=== PATIENT | female | born 1945 | race Caucasian/White ===

== ENCOUNTER → 2017-02-02 | Outpatient (CLI) | payer OTHER ==
[~2017-02-02] MED LIST: ACID CONTROL150 MG PO; ATORVASTATIN CA40 MG PO; BUPROPION HCL150 M2 PO; CARAFATE100 MG/ML PO; FLONASE16 G1 BOTH NARES; HYDROCHLOROTHIA25 MG PO; LEVOTHYROXINE112 MCG PO; NERVE PILL; OMEPRAZOLE20 M2 PO; PRED FORTE100 DROP/5 BOTH EYES; ST. JOSEPH ASPI81 MG PO; VALSARTAN160 MG PO
== END | disposition home or self-care (01) ==
DX: R26.2 Difficulty in walking, not elsewhere classified (principal); M25.562 Pain in left knee; M25.662 Stiffness of left knee, not elsewhere classified; M62.81 Muscle weakness (generalized); Z74.1 Need for assistance with personal care; M17.12 Unilateral primary osteoarthritis, left knee
CPT/HCPCS: 97150 GO; 97161 GP; 97165 GO; 97530 GP; G8978 GP; G8979 GP; G8980 GP; G8987 GO; G8988 GO; G8989 GO

== ENCOUNTER 2017-02-28 21:05 | Inpatient (IN) | payer OTHER ==
[~2017-02-28] VITALS: Ht 149.9 cm; Wt 92.0 kg
[~2017-02-28 21:05] MED LIST changes: +ALDACTONE25 MG PO; +APRESOLINE25 MG PO; +DIOVAN160 MG PO; +FOSAMAX70 MG PO; +SYNTHROID112 MCG PO; +TOPROL XL25 MG PO
[2017-03-01 06:32] VITALS: BP 152/67
[2017-03-01 10:12] LABS: HEMATOCRIT 32.3 % (36.0-46.0); HEMOGLOBIN 10.9 G/DL (11.9-15.5); MCH 32.2 PG (29.0-34.0); MCHC 33.7 G/DL (30.0-36.0); MCV 95.3 FL (83-99); PLATELET COUNT 239 K/uL (156-360); RBC DIS.WIDTH-CV 13.5 % (11.8-14.6); RBC DIS.WIDTH-SD 47.1 % (39-53); RED BLOOD COUNT 3.39 M/uL (3.80-5.20); WHITE BLOOD COUNT 10.8 K/uL (4.1-10.2)
[2017-03-01 11:13] VITALS: BP 97/56
[2017-03-01 15:37] VITALS: BP 129/67
[2017-03-01 19:49] VITALS: BP 136/63
[2017-03-02] VITALS: BP 110/54
[2017-03-02 04:10] VITALS: BP 122/57
[2017-03-02 05:02] LABS: CHLORIDE 106 mEq/L (99-109); POTASSIUM 5.2 mEq/L (3.7-5.4); SODIUM 136 mEq/L (136-147)
[2017-03-02 05:03] LABS: GLUCOSE 116 mg/dL (70-99)
[2017-03-02 05:06] LABS: HEMATOCRIT 42.7 % (36.0-46.0); MCV 94.9 FL (83-99)
[2017-03-02 05:07] LABS: CREATININE 0.9 mg/dL (0.6-1.3); GFR ESTIMATE (CALCULATED) > 59 mL/min/; HEMOGLOBIN 14.2 G/DL (11.9-15.5)
[2017-03-02 05:08] LABS: UREA NITROGEN (BUN) 10 mg/dL (9-23)
[2017-03-02 11:38] VITALS: BP 101/53
[2017-03-02 15:29] VITALS: BP 125/58
[2017-03-02] MEDS ORDERED: LOVENOX40 MG/0.4 SC (16:03)
[2017-03-02] MEDS ORDERED: ENDOCET 5-3251 EACH PO (16:03)
[2017-03-02 20:01] VITALS: BP 143/64
[2017-03-03] VITALS: BP 150/67
[2017-03-03 04:00] VITALS: BP 140/65
[2017-03-03 06:47] LABS: HEMATOCRIT 29.5 % (36.0-46.0); MCV 94.2 FL (83-99)
[2017-03-03 06:53] LABS: HEMOGLOBIN 9.7 G/DL (11.9-15.5)
[2017-03-03 08:18] VITALS: BP 114/67
[2017-03-03 12:09] VITALS: BP 138/59
[2017-03-03 16:13] VITALS: BP 141/65
[2017-03-03 20:14] VITALS: BP 161/70
[2017-03-04] VITALS: BP 125/60
[2017-03-04 04:00] VITALS: BP 134/63
[2017-03-04 08:02] VITALS: BP 140/63
[2017-03-04 12:08] VITALS: BP 122/57
== END 2017-03-04 14:21 | DRG 470 ==
LOC: ENRESERV 21:05 → 2SOUTH 03-01 05:38 → 3WEST 03-01 05:38 → 2SOUTH 03-01 12:04 → 3WEST 03-04 14:21
PROVIDERS: Orthopaedic Surgery
PROC: 0SRD0J9 Replacement of Left Knee Joint with Synthetic Substitute, Cemented, Open Approach (ICD-10-PCS; principal; 2017-03-01)
DX: M17.12 Unilateral primary osteoarthritis, left knee (principal); I10 Essential (primary) hypertension; E78.5 Hyperlipidemia, unspecified; I48.91 Unspecified atrial fibrillation; E11.9 Type 2 diabetes mellitus without complications; K21.9 Gastro-esophageal reflux disease without esophagitis; I77.1 Stricture of artery; E03.9 Hypothyroidism, unspecified; Z86.010 Personal history of colon polyps; Z79.82 Long term (current) use of aspirin; Z94.7 Corneal transplant status
CPT/HCPCS: 71045; 73560; 80048; 85014; 85018; 85027; 97530 GP; C1713; J0131; J0690; J1100; J1170; J1650; J2250; J2405; J2795; J3010; J7030; J7050; Q0175